=== PATIENT | female | born 1990 | race Caucasian/White ===

== ENCOUNTER 2022-08-26 16:38 | Emergency (ER) | payer OTHER, MEDICAID ==
[~2022-08-26] VITALS: Ht 172.7 cm; Wt 103.0 kg
[2022-08-26 16:45] VITALS: BP 141/72
[2022-08-26] MEDS ORDERED: ALBUTEROL (0.083%) 2.5MG/3ML NEB HHN NR (21:32)
[2022-08-26] MEDS ORDERED: IPRATROPIUM BROMIDE (0.02%) 0.5MG/2.5ML NEB HHN NR (21:32)
[2022-08-26] MEDS ORDERED: AMOX-494 MT (23:13)
[2022-08-26] MEDS ORDERED: ALBU6.7H3 INH (23:13)
== END 2022-08-26 22:08 | disposition home or self-care (01) ==
LOC: ER 16:38
DX: J45.909 Unspecified asthma, uncomplicated (principal); E11.9 Type 2 diabetes mellitus without complications; I49.9 Cardiac arrhythmia, unspecified; Z20.822 Contact with and (suspected) exposure to COVID-19; Z98.890 Other specified postprocedural states
CPT/HCPCS: 71045; 87426; 87804; 93005; 99285; C9803